=== PATIENT | male | born 1975 | race American Indian/Alaskan Native ===

== ENCOUNTER 2017-08-13 09:50 | Emergency (ER) | payer BC ==
[2017-08-13 09:56] VITALS: BP 130/69
--- NOTE | 2017-08-13 12:47 | Emergency Department Report ---
HPI - General Chief Complaint: High BP Time Seen by Provider: 08/13/17 12:27 - HPI HPI: Patient presented to the ED, community health, with high blood pressure. Patient has had long-standing blood pressure but has been without medication for the past year. He states that he just wanted a refill of his prescriptions. Patient also complaining of cough, runny nose. Has had contacts with family members with similar symptoms. He denies fever, body aches. The patient denies any chest pain, shortness of breath, nausea, vomiting , diaphoresis. Patient denies having diabetes, hyperlipidemia,. ED Past Medical Hx - Past Medical History Previous Medical History?: Yes Hx Hypertension: Yes - Surgical History Past Surgical History?: No - Social History Smoking Status: Current Some Day Smoker Substance Use Type: Alcohol, Marijuana - Medications Home Medications: Home Medications Medication Instructions Recorded Confirmed Last Taken Type Cetirizine HCl [ZyrTEC] 10 mg PO QDAY #30 capsule 08/13/17 Unknown Rx amLODIPine [Norvasc] 5 mg PO DAILY #30 tab 08/13/17 Unknown Rx ED Review of Systems ROS: Stated complaint: HIGH BLOOD PRESSURE Other details as noted in HPI Constitutional: no symptoms reported Physical Exam - Physical Exam Vital Signs: Vital Signs 08/13/17 09:53 Temperature 98.4 F Pulse Rate 70 Respiratory 16 Rate Blood Pressure 130/69 O2 Sat by Pulse 96 Oximetry Physical Exam: Gen. alert and oriented 3 in no distress Head atraumatic normocephalic Eyes PERR LA EOMI Chest regular rate and rhythm normal S1-S2 lungs clear bilaterally Abdomen soft nondistended Back no point tenderness paravertebral tenderness Neuro no focal deficit. Psych normal mood. ED Course Vital Signs 08/13/17 09:53 Temperature 98.4 F Pulse Rate 70 Respiratory 16 Rate Blood Pressure 130/69 O2 Sat by Pulse 96 Oximetry Critical care attestation.: If time is entered above; I have spent that time in minutes in the direct care of this critically ill patient, excluding procedure time. ED Disposition Clinical Impression: Viral upper respiratory illness Hypertension Qualifiers: Hypertension type: essential hypertension Qualified Code(s): I10 - Essential ( primary) hypertension Disposition: DC- TO HOME OR SELFCARE Is pt being admited?: No Does the pt Need Aspirin: No Condition: Stable Instructions: Hypertension (ED) Prescriptions: amLODIPine [Norvasc] 5 mg PO DAILY #30 tab Cetirizine HCl [ZyrTEC] 10 mg PO QDAY #30 capsule Referrals: PRIMARY CARE, [Primary Care Provider] - 3-5 Days Forms: Work/School Release Form(ED)
== END 2017-08-13 12:52 | disposition home or self-care (01) ==
LOC: ED 09:50
DX: I10 Essential (primary) hypertension (principal); F17.200 Nicotine dependence, unspecified, uncomplicated
CPT/HCPCS: 99282